=== PATIENT | male | born 1970 | race Hispanic/Latino ===

== ENCOUNTER 2017-12-05 20:08 | Emergency (ER) | payer BC ==
[2017-12-05] MEDS ORDERED: MOTRIN PO ONE (20:33)
[2017-12-05] MEDS ORDERED: DELTASONE PO ONE (20:33)
[2017-12-05] MEDS ORDERED: ZITHROMAX PO ONE (20:34)
--- NOTE | 2017-12-05 20:43 | Emergency Department Report ---
Upper Respiratory HPI - HPI Duration: 5 Days URI Symptoms: Sore Throat: Yes, Ear Pain: Yes, Cough: Yes, Shortness of Breath: No, Sick Contacts: No, Unable to Take Fluids: No, Urine Output Abnormal: No, Listless Behavior: No Other History: bronchitis <DRE YOU - Last Filed: 12/05/17 20:35> <ELAINE JON - Last Filed: 12/06/17 19:57> - HPI Chief Complaint: Upper Respiratory Infection Stated Complaint: SORETHROAT Time Seen by Provider: 12/05/17 20:28 - Home Meds and Allergies Home Medications: Previous Rx's Medication Instructions Recorded Last Taken Type ALBUTEROL Inhaler [ProAir HFA 2 puff IH QID PRN #1 inhalation 12/05/17 Unknown Rx Inhaler] Azithromycin [Zithromax TAB] 250 mg PO QDAY #4 tablet 12/05/17 Unknown Rx Codeine Phosphate/Guaifenesin 5 ml PO TID PRN #120 liquid 12/05/17 Unknown Rx [Guaifen-Codeine 100-10 mg/5 ml] Ibuprofen [Motrin 800 MG tab] 800 mg PO TID PRN #30 tablet 12/05/17 Unknown Rx predniSONE [Deltasone] 40 mg PO QDAY #10 tablet 12/05/17 Unknown Rx Allergies/Adverse Reactions: Allergies Allergy/AdvReac Type Severity Reaction Status Date / Time No Known Allergies Allergy Unverified 12/05/17 20:20 ED Review of Systems ROS: Stated complaint: SORETHROAT Other details as noted in HPI Constitutional: chills, malaise ENT: ear pain, throat pain, congestion Respiratory: cough, wheezing Cardiovascular: denies: chest pain, palpitations Endocrine: no symptoms reported Gastrointestinal: denies: abdominal pain, nausea, diarrhea Genitourinary: denies: urgency, dysuria Musculoskeletal: denies: back pain, joint swelling, arthralgia Skin: denies: rash, lesions Neurological: denies: headache, weakness, paresthesias Psychiatric: denies: anxiety, depression Hematological/Lymphatic: denies: easy bleeding, easy bruising <DRE YOU - Last Filed: 12/05/17 20:35> ROS: Stated complaint: SORETHROAT Other details as noted in HPI <ELAINE JON - Last Filed: 12/06/17 19:57> ED Past Medical Hx - Past Medical History Previous Medical History?: No - Surgical History Past Surgical History?: No - Social History Smoking Status: Former Smoker Substance Use Type: None <DRE YOU - Last Filed: 12/05/17 20:35> <ELAINE JON - Last Filed: 12/06/17 19:57> - Medications Home Medications: Home Medications Medication Instructions Recorded Confirmed Last Taken Type ALBUTEROL Inhaler [ProAir HFA 2 puff IH QID PRN #1 inhalation 12/05/17 Unknown Rx Inhaler] Azithromycin [Zithromax TAB] 250 mg PO QDAY #4 tablet 12/05/17 Unknown Rx Codeine Phosphate/Guaifenesin 5 ml PO TID PRN #120 liquid 12/05/17 Unknown Rx [Guaifen-Codeine 100-10 mg/5 ml] Ibuprofen [Motrin 800 MG tab] 800 mg PO TID PRN #30 tablet 12/05/17 Unknown Rx predniSONE [Deltasone] 40 mg PO QDAY #10 tablet 12/05/17 Unknown Rx ED Bronchiolitis Physical Exam - Exam General: Vital signs noted. No distress. Alert and acting appropriately. HEENT: Yes Pharyngeal Erythema, Yes Rhinorrhea, No Conjuctival Injection, No Dry Mucous Membranes Ear: Both TM Erythema, Neither EAC Discharge Neck: No Adenopathy, No Rigidity Lungs: Yes Clear Lung Sounds, Yes Good Air Exchange, Yes Cough, No Wheezes, No Stridor, No Nasal Flaring, No Retractions, No Use of Accessory Muscles Heart: Yes Regular, No Murmur Abdomen: Yes Normal Bowel Sounds, No Tenderness, No Peritoneal Signs Skin: No Rash, No Eczema Neurologic: Alert and oriented, no deficits. Musculoskeletal: Unremarkable. <DRE YOU - Last Filed: 12/05/17 20:35> - Exam General: Vital signs noted. No distress. Alert and acting appropriately. Neurologic: Alert and oriented, no deficits. Musculoskeletal: Unremarkable. <ELAINE JON - Last Filed: 12/06/17 19:57> ED Physical Exam - General Limitations: No Limitations General appearance: alert, in no apparent distress - Head Head exam: Present: atraumatic - Eye Eye exam: Present: normal appearance - ENT ENT exam: Present: mucous membranes moist - Expanded ENT Exam Expanded TM/Canal exam: Erythema: Right TM, Left TM, Canal Tenderness: Right TM, Left TM Throat exam: Positive: tonsillar erythema, tonsillomegaly. Negative: tonsillar exudate, R peritonsillar mass, L peritonsillar mass - Neck Neck exam: Present: normal inspection, full ROM. Absent: tenderness, lymphadenopathy, thyromegaly - Respiratory Respiratory exam: Present: normal lung sounds bilaterally. Absent: respiratory distress, wheezes, rhonchi, stridor, chest wall tenderness - Cardiovascular Cardiovascular Exam: Present: regular rate, normal rhythm, normal heart sounds. Absent: systolic murmur, diastolic murmur, rubs, gallop - GI/Abdominal GI/Abdominal exam: Present: soft, normal bowel sounds. Absent: distended, tenderness, guarding, rebound, rigid, organomegaly, mass, bruit, pulsatile mass , hernia - Rectal Rectal exam: Present: deferred - Extremities Exam Extremities exam: Present: normal inspection - Back Exam Back exam: Present: normal inspection, full ROM. Absent: tenderness, CVA tenderness (R), CVA tenderness (L), muscle spasm, paraspinal tenderness, vertebral tenderness - Neurological Exam Neurological exam: Present: alert, oriented X3, CN II-XII intact, normal gait, reflexes normal - Psychiatric Psychiatric exam: Present: normal affect, normal mood - Skin Skin exam: Present: warm, dry, intact, normal color. Absent: rash <DRE YOU - Last Filed: 12/05/17 20:35> ED Medical Decision Making - Medical Decision Making This is likely bronchitis , given history of bronchitis. no response to amoxicillin. however lungs clear at this time, bilat TM erythema, moderate pharynx erythema no swelling exudate uvula midline no stridor no whezzing, no fever, Plan: Z-Iban 5 day ,albuterol inhaler when necessary shortness of breath /wheezing /prednisone 40 mg by mouth 5 days/ ibuprofen when necessary pain fever 3 times a day/ cheratussin when necessary cough tid, follow PCP in 2-3 days return to ed if symptoms worsen, pt verbalized agreement and understanding with same will dc to home in stable condition at this time. pt is currently a/o x 3 ambulatory gait steady with nad at this time. <DRE YOU - Last Filed: 12/05/17 20:35> - Medical Decision Making I was available for consultations at all times during the patient stay. I did not personally see and was not involved in the care of the patient. <ELAINE JON - Last Filed: 12/06/17 19:57> Critical care attestation.: If time is entered above; I have spent that time in minutes in the direct care of this critically ill patient, excluding procedure time. <DRE YOU - Last Filed: 12/05/17 20:35> Critical care attestation.: If time is entered above; I have spent that time in minutes in the direct care of this critically ill patient, excluding procedure time. <ELAINE JON - Last Filed: 12/06/17 19:57> ED Disposition Is pt being admited?: No Does the pt Need Aspirin: No Time of Disposition: 20:47 <DRE YOU - Last Filed: 12/05/17 20:35> <ELAINE JON - Last Filed: 12/06/17 19:57> Disposition: DC-01 TO HOME OR SELFCARE Condition: Good Instructions: Upper Respiratory Infection (ED), Acute Bronchitis (ED) Prescriptions: ALBUTEROL Inhaler [ProAir HFA Inhaler] 2 puff IH QID PRN #1 inhalation PRN Reason: Shortness Of Breath Azithromycin [Zithromax TAB] 250 mg PO QDAY #4 tablet Codeine Phosphate/Guaifenesin [Guaifen-Codeine 100-10 mg/5 ml] 5 ml PO TID PRN # 120 liquid PRN Reason: Cough Ibuprofen [Motrin 800 MG tab] 800 mg PO TID PRN #30 tablet PRN Reason: pain/fever predniSONE [Deltasone] 40 mg PO QDAY #10 tablet Referrals: PRIMARY CARE,MD [Referring] - 3-5 Days Forms: Work/School Release Form(ED)
== END 2017-12-05 21:06 | disposition home or self-care (01) ==
LOC: ED 20:08
DX: J02.9 Acute pharyngitis, unspecified (principal); Z87.891 Personal history of nicotine dependence
CPT/HCPCS: 99282; J7512

== ENCOUNTER 2019-08-18 07:32 | Outpatient (CLI) | payer BC ==
--- NOTE | 2019-08-18 09:21 | Magnetic Resonance Report ---
MRI LUMBAR SPINE WITHOUT CONTRAST INDICATION / CLINICAL INFORMATION: Low back pain and right leg pain. TECHNIQUE: Multisequence, multiplanar images of the lumbar spine were obtained. COMPARISON: None available. FINDINGS: ALIGNMENT: Normal lumbar lordosis without significant scoliosis. VERTEBRAE:There is a background of developmental short pedicles contributing to multilevel canal sten osis. VISUALIZED SPINAL CORD: No significant abnormality. [id number] ANALYSIS: L1-2: There is mild bilateral facet DJD without significant canal or foraminal narrowing. L2-3: There is mild bilateral facet DJD without significant canal or foraminal narrowing. L3-4: There is moderate bilateral facet DJD and symmetric bulging of the discs. The ligamentum flavum thickening and disc bulge result in moderate canal stenosis. There is no significant neural foramina l stenosis. L4-5: There is moderate bilateral facet DJD with ligamentum flavum thickening and moderate symmetric bulging of the disc that result in moderate central canal stenosis. There is also mild bilateral neur al foraminal narrowing secondary to the facet hypertrophy. L5-S1: There is moderate bilateral facet DJD and rightward asymmetric bulging of the disc resulting i n mild central canal stenosis and mild bilateral neural foraminal stenosis. PARASPINAL SOFT TISSUES: No significant abnormality. ADDITIONAL FINDINGS: None. IMPRESSION: 1. Multilevel degenerative changes superimposed upon developmental short pedicles with mild to modera te central canal stenosis from L3 through S1, greatest at L3-4 and L4-5. Signer Name: Raphael Nixon MD Signed: 08/18/2019 9:17 AM Workstation Name: [email or web address]
== END 2019-08-18 07:33 | disposition home or self-care (01) ==
LOC: MRI 07:32
DX: M47.817 Spondylosis without myelopathy or radiculopathy, lumbosacral region (principal); M48.07 Spinal stenosis, lumbosacral region
CPT/HCPCS: 72148

== ENCOUNTER 2020-06-11 01:23 | Emergency (ER) | payer BC ==
[2020-06-11 01:30] VITALS: BP 141/95
--- NOTE | 2020-06-11 01:31 | Event Note ---
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 Does report Covid positive coworkers. Has not been tested or vaccinated. This initial assessment/diagnostic orders/clinical plan/treatment(s) is/are subject to change based on patients health status, clinical progression and re- assessment by fellow clinical providers in the ED. Further treatment and workup at subsequent clinical providers discretion. Patient/guardian urged not to elope from the ED as their condition may be serious if not clinically assessed and managed. Initial orders include:
[2020-06-11 02:19] LABS: Basophils # (Auto) 0.1 K/mm3 (0.0-0.1); Basophils % (Auto) 0.9 % (0.0-1.8); Eosinophils # (Auto) 0.1 K/mm3 (0.0-0.4); Hematocrit 42.3 % (35.5-45.6); Hemoglobin 14.6 gm/dl (11.8-15.2); Lymphocytes # (Auto) 1.1 K/mm3 (1.2-5.4); Lymphocytes % (Auto) 19.5 % (13.4-35.0); Mean Corpuscular HGB Conc 35 % (32-34); Mean Corpuscular Volume 82 fl (84-94); Monocytes # (Auto) 0.7 K/mm3 (0.0-0.8); Monocytes % (Auto) 13.3 % (0.0-7.3); Platelet Count 246 K/mm3 (140-440); Red Blood Count 5.15 M/mm3 (3.65-5.03); Red Cell Distribution Width 14.5 % (13.2-15.2)
--- NOTE | 2020-06-11 02:23 | XRay Report ---
XR chest routine 2V INDICATION / CLINICAL INFORMATION: dry cough COMPARISON: None available. FINDINGS: SUPPORT DEVICES: None. HEART / MEDIASTINUM: No significant abnormality. LUNGS / PLEURA: Lungs are clear. Costophrenic sulci are sharp. No pneumothorax. ADDITIONAL FINDINGS: No significant additional findings. IMPRESSION: 1. No acute findings. Signer Name: Eugenio Guerra MD Signed: 06/11/2020 2:18 AM Workstation Name: [id number]
[2020-06-11 02:47] LABS: Alanine Aminotransferase 55 units/L (7-56); Albumin 4.4 g/dL (3.9-5); BUN/Creatinine Ratio 17; Blood Urea Nitrogen 15 mg/dL (9-20); Calcium 9.6 mg/dL (8.4-10.2); Hemolysis Index 24
--- NOTE | 2020-06-11 03:01 | Emergency Department Report ---
HPI - General Chief Complaint: Upper Respiratory Infection Time Seen by Provider: 06/11/20 02:35 - HPI HPI: Room 34 The patient is a 50-year-old male present with a chief complaint of headache dizziness myalgias and cough. The patient states yesterday he was in his usual state of health. The patient states today he laid down for nap and when he awak ened he felt like he been "hit by a truck." Patient admits to myalgias feeling tired with intermittent dizziness and headache. Patient states he has developed a dry cough and subjective fever. Patient denies rhinorrhea nausea or vomiting. Patient denies any preceding trauma. Patient gives his pain a score of 3/10 ED Past Medical Hx - Past Medical History Previous Medical History?: No - Surgical History Past Surgical History?: Yes Additional Surgical History: neck - Family History Family history: no significant - Social History Smoking Status: Never Smoker Substance Use Type: None - Medications Home Medications: Home Medications Medication Instructions Recorded Confirmed Last Taken Type Albuterol Mdi (or & Nicu Only) 2 puff IH QID PRN #1 inhalation 12/05/17 Unknown Rx [ProAir HFA Inhaler] Azithromycin [Zithromax TAB] 250 mg PO QDAY #4 tablet 12/05/17 Unknown Rx Codeine Phosphate/Guaifenesin 5 ml PO TID PRN #120 liquid 12/05/17 Unknown Rx [Guaifen-Codeine 100-10 mg/5 ml] Ibuprofen [Motrin 800 MG tab] 800 mg PO TID PRN #30 tablet 12/05/17 Unknown Rx predniSONE [Deltasone] 40 mg PO QDAY #10 tablet 12/05/17 Unknown Rx Azithromycin [Zithromax Z-FRANKLIN] 0 mg PO DAILY #6 tab 06/11/20 Unknown Rx Butalb/Acetamin/Caff 50-325-40 2 tab PO Q8HR PRN #20 tablet 06/11/20 Unknown Rx [Fioricet 50-325-40] ED Review of Systems ROS: Stated complaint: GENERAL ILLNESS Other details as noted in HPI Constitutional: chills, fever (Subjective) Eyes: denies: eye pain ENT: congestion (Frontal sinus) Respiratory: cough Cardiovascular: denies: chest pain Endocrine: no symptoms reported Gastrointestinal: denies: nausea, vomiting Genitourinary: denies: dysuria Musculoskeletal: myalgia Neurological: headache Physical Exam - Physical Exam Vital Signs: Vital Signs 06/11/20 01:27 Temperature 99.9 F H Pulse Rate 109 H Respiratory 22 Rate Blood Pressure 141/95 [Right] O2 Sat by Pulse 97 Oximetry Physical Exam: GENERAL: The patient is well-developed well-nourished male lying on stretcher not appearing to be in acute. [] HEENT: Normocephalic. Atraumatic. Extraocular motions are intact. Patient has moist mucous membranes. NECK: Supple. No meningitic signs are noted. There is no adenopathy noted. CHEST/LUNGS: Clear to auscultation. There is no respiratory distress noted. HEART/CARDIOVASCULAR: Regular. There is no tachycardia. There is no gallop rub or murmur. ABDOMEN: Abdomen is soft, nontender. Patient has normal bowel sounds. There is no abdominal distention. SKIN: There is no rash. There is no edema. There is no diaphoresis. NEURO: The patient is awake, alert, and oriented. The patient is cooperative. The patient has no focal neurologic deficits. The patient has normal speech. Cranial nerves II through XII grossly intact MUSCULOSKELETAL: There is no evidence of acute injury. ED Course Vital Signs 06/11/20 01:27 Temperature 99.9 F H Pulse Rate 109 H Respiratory 22 Rate Blood Pressure 141/95 [Right] O2 Sat by Pulse 97 Oximetry - Reevaluation(s) Reevaluation #1: 06/11/20 04:44 Patient SPO2 95% on room air after ambulating 2 minutes ED Medical Decision Making - Lab Data Result diagrams: 06/11/20 01:50 06/11/20 01:50 Laboratory Tests 06/11/20 06/11/20 01:50 01:50 WBC 5.6 RBC 5.15 H Hgb 14.6 Hct 42.3 MCV 82 L MCH 28 MCHC 35 H RDW 14.5 Plt Count 246 Lymph % (Auto) 19.5 [place] % (Auto) 13.3 H Eos % (Auto) 1.0 Baso % (Auto) 0.9 Lymph # (Auto) 1.1 L [place] # (Auto) 0.7 Eos # (Auto) 0.1 Baso # (Auto) 0.1 Seg Neutrophils % 65.3 Seg Neutrophils # 3.6 Sodium 139 Potassium 4.6 Chloride 102.4 Carbon Dioxide 24 Anion Gap 17 BUN 15 Creatinine 0.9 Estimated GFR > 60 BUN/Creatinine Ratio 17 Glucose 105 H Calcium 9.6 Total Bilirubin 0.40 AST 47 H ALT 55 Alkaline Phosphatase 131 H Total Protein 7.0 Albumin 4.4 Albumin/Globulin Ratio 1.7 - Radiology Data Radiology results: report reviewed (Chest x-ray, CT head), image reviewed (Chest x-ray, CT head) interpreted by me: Chest x-ray-no focal infiltrates, no pneumothorax. No foreign body seen Chest x-ray (read by radiologist)-no acute findings [facility] [address] [place] [address] Cat Scan Report Signed Patient: PRITI WAGGONER R#: [id number] : 1970 Acct:[id number] Age/Sex: 50 / M ADM Date: 06/11/20 Loc: ED Attending Dr: Ordering Physician: CONNOR DENIS MD Date of Service: 06/11/20 Procedure(s): CT head/brain wo con Accession Number(s): [id number] cc: CONNOR DENIS MD CT head/brain wo con INDICATION: Patient complains of a headache and dizziness x 1 day.. TECHNIQUE: Routine CT head. All CT scans at this location are performed using CT dose reduction for ALARA by means of automated exposure control. COMPARISON: None. FINDINGS: Intracranial: Murry-white matter differen tiation is maintained. No intracranial hemorrhage. No extra axial collection. No hydrocephalus. No herniation. Sinuses: Paranasal sinuses and mastoid air cells are essentially clear. Orbits: Globes are intact. Calvarium: No acute fracture. IMPRESSION: 1. No acute intracranial abnormality. Signer Name: Eugenio Guerra MD Signed: 06/11/2020 3:42 AM Workstation Name: [id number] Transcribed By: CS Dictated By: Eugenio Guerra MD Electronically Authenticated By: Eugenio Guerra MD Signed Date/Time: 06/11/20341 DD/ 9 TD/TT: - Differential Diagnosis Viral prodrome, COVID-19, pneumonia, bronchitis, intracranial hemorrhage Critical care attestation.: If time is entered above; I have spent that time in minutes in the direct care of this critically ill patient, excluding procedure time. ED Disposition Clinical Impression: Cough, Headache Disposition: DC-01 TO HOME OR SELFCARE Is pt being admited?: No Does the pt Need Aspirin: No Condition: Stable Instructions: COVID-19 Frequently Asked Questions, Prevent the Spread of COVID- 19 if You Are Sick - [facility] Additional Instructions: Return to the emergency department should you develop worsening symptoms, inability to tolerate food or liquids, high fever or any other concerns Prescriptions: Butalb/Acetamin/Caff 50-325-40 [Fioricet 50-325-40] 2 tab PO Q8HR PRN #20 tablet PRN Reason: Headache Azithromycin [Zithromax Z-FRANKLIN] 0 mg PO DAILY #6 tab Referrals: OSMIN LOPEZ MD [Primary Care Provider] - 3-5 Days Time of Disposition: 04:44
--- NOTE | 2020-06-11 03:47 | Cat Scan Report ---
CT head/brain wo con INDICATION: Patient complains of a headache and dizziness x 1 day.. TECHNIQUE: Routine CT head. All CT scans at this location are performed using CT dose reduction for A BEAR by means of automated exposure control. COMPARISON: None. FINDINGS: Intracranial: Murry-white matter differentiation is maintained. No intracranial hemorrhage. No extra a xial collection. No hydrocephalus. No herniation. Sinuses: Paranasal sinuses and mastoid air cells are essentially clear. Orbits: Globes are intact. Calvarium: No acute fracture. IMPRESSION: 1. No acute intracranial abnormality. Signer Name: Eugenio Guerra MD Signed: 06/11/2020 3:42 AM Workstation Name: [id number]
== END 2020-06-11 04:50 | disposition home or self-care (01) ==
LOC: ED 01:23
DX: R05 Cough (principal); R51.9 Headache, unspecified; Z79.899 Other long term (current) drug therapy; Z98.890 Other specified postprocedural states
CPT/HCPCS: 36415; 70450; 71046; 80053; 85025

== ENCOUNTER 2020-12-06 07:28 | Outpatient (CLI) | payer BC ==
--- NOTE | 2020-12-06 09:41 | Magnetic Resonance Report ---
MRI RIGHT KNEE WITHOUT CONTRAST INDICATION / CLINICAL INFORMATION: POST. RIGHT KNEE PAIN. TECHNIQUE: Multiplanar, multisequence MR images were obtained. No contrast used. COMPARISON: None available. FINDINGS: ACL: No significant abnormality. PCL: No significant abnormality. DISTAL QUADRICEPS TENDON: No significant abnormality. PATELLAR TENDON: No significant abnormality. MEDIAL MENISCUS: Complex tear in the posterior horn and body of the medial meniscus. LATERAL MENISCUS: No significant abnormality. POSTEROLATERAL CORNER: No significant abnormality. MCL: No significant abnormality. LCL: No significant abnormality. DISTAL IT BAND: No significant abnormality. PATELLOFEMORAL ALIGNMENT: No significant abnormality. ARTICULAR CARTILAGE: Moderate chondrosis in the medial femorotibial compartment and patellofemoral co mpartment with secondary marginal osteophyte formation. JOINT SPACE: No significant joint effusion or synovitis. No significant popliteal cyst. No intra-abimbola cular bodies. BONES: No significant bone marrow edema. No fracture. No osseous lesion. SOFT TISSUES: No significant abnormality. ADDITIONAL FINDINGS: None. IMPRESSION: 1. Complex tear in the posterior horn and body of the medial meniscus. 2. 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 Signer Name: Raphael Nixon MD Signed: 12/06/2020 9:37 AM Workstation Name: [id number]
== END 2020-12-06 07:29 | disposition home or self-care (01) ==
LOC: MRI 07:28
PROVIDERS: ATTEND Orthopaedic Surgery Sports Medicine
DX: S83.231A Complex tear of medial meniscus, current injury, right knee, initial encounter (principal); M17.11 Unilateral primary osteoarthritis, right knee; X58.XXXA Exposure to other specified factors, initial encounter
CPT/HCPCS: 73721

== ENCOUNTER 2021-09-02 00:20 | Emergency (ER) | payer BC ==
[2021-09-02 00:51] VITALS: BP 140/92
[2021-09-02 01:29] LABS: Basophils # (Auto) 0.1 K/mm3 (0.0-0.1); Basophils % (Auto) 0.6 % (0.0-1.8); Eosinophils # (Auto) 0.3 K/mm3 (0.0-0.4); Eosinophils % (Auto) 3.1 % (0.0-4.3); Hematocrit 43.6 % (35.5-45.6); Hemoglobin 14.4 gm/dl (11.8-15.2); Lymphocytes # (Auto) 1.8 K/mm3 (1.2-5.4); Lymphocytes % (Auto) 18.3 % (13.4-35.0); Mean Corpuscular HGB Conc 33 % (32-34); Mean Corpuscular Volume 80 fl (84-94); Monocytes # (Auto) 0.6 K/mm3 (0.0-0.8); Monocytes % (Auto) 5.9 % (0.0-7.3); Platelet Count 293 K/mm3 (140-440); Red Blood Count 5.42 M/mm3 (3.65-5.03); Red Cell Distribution Width 14.1 % (13.2-15.2)
--- NOTE | 2021-09-02 01:30 | XRay Report ---
CHEST 1 VIEW INDICATION / CLINICAL INFORMATION: dizziness. COMPARISON: Chest x-ray 06/11/2020 FINDINGS: SUPPORT DEVICES: None. HEART / MEDIASTINUM: No significant abnormality. LUNGS / PLEURA: The lungs are clear. No pneumothorax. ADDITIONAL FINDINGS: No significant additional findings. IMPRESSION: 1. No active cardiopulmonary disease. Signer Name: Hussein White II, MD Signed: 09/02/2021 1:26 AM Workstation Name: [id number]
[2021-09-02 01:41] LABS: Alanine Aminotransferase 26 units/L (7-56); Albumin 4.2 g/dL (3.9-5); BUN/Creatinine Ratio 19; Blood Urea Nitrogen 15 mg/dL (9-20); Calcium 9.1 mg/dL (8.4-10.2); Hemolysis Index 13
[2021-09-02] MEDS ORDERED: MECLIZINE 25 MG TAB PO ONE (02:29)
--- NOTE | 2021-09-02 02:31 | Emergency Department Report ---
ED Dizziness HPI - General Chief Complaint: Dizziness Stated Complaint: DIZZINESS Time Seen by Provider: 09/02/21 02:10 Source: patient Mode of arrival: Ambulatory Limitations: No Limitations - History of Present Illness Initial Comments: This patient states that he was watching TV and suddenly began experiencing symptoms in which he felt MD Complaint: dizziness -: Sudden Timing: sudden onset Description: off-balance, nausea History of Same: Yes History of Trauma: No Severity: moderate Associated Symptoms: denies: chest pain, confusion, diaphoresis, fever/chills, loss of appetite, malaise, seizure, shortness of breath, syncope, weakness - Related Data Previous Rx's Medication Instructions Recorded Last Taken Type Albuterol Mdi (or & Nicu Only) 2 puff IH QID PRN #1 inhalation 12/05/17 Unknown Rx [ProAir HFA Inhaler] Azithromycin [Zithromax TAB] 250 mg PO QDAY #4 tablet 12/05/17 Unknown Rx Codeine Phosphate/Guaifenesin 5 ml PO TID PRN #120 liquid 12/05/17 Unknown Rx [Guaifen-Codeine 100-10 mg/5 ml] Ibuprofen [Motrin 800 MG tab] 800 mg PO TID PRN #30 tablet 12/05/17 Unknown Rx predniSONE [Deltasone] 40 mg PO QDAY #10 tablet 12/05/17 Unknown Rx Azithromycin [Zithromax Z-FRANKLIN] 0 mg PO DAILY #6 tab 06/11/20 Unknown Rx Butalb/Acetamin/Caff 50-325-40 2 tab PO Q8HR PRN #20 tablet 06/11/20 Unknown Rx [Fioricet 50-325-40] Meclizine [Antivert] 25 mg PO TID PRN #20 tab 09/02/21 Unknown Rx Allergies Allergy/AdvReac Type Severity Reaction Status Date / Time No Known Allergies Allergy Unverified 12/05/17 20:20 ED Review of Systems ROS: Stated complaint: DIZZINESS Other details as noted in HPI ED Past Medical Hx - Surgical History Additional Surgical History: neck - Social History Smoking Status: Never Smoker Substance Use Type: None - Medications Home Medications: Home Medications Medication Instructions Recorded Confirmed Last Taken Type Albuterol Mdi (or & Nicu Only) 2 puff IH QID PRN #1 inhalation 12/05/17 Unknown Rx [ProAir HFA Inhaler] Azithromycin [Zithromax TAB] 250 mg PO QDAY #4 tablet 12/05/17 Unknown Rx Codeine Phosphate/Guaifenesin 5 ml PO TID PRN #120 liquid 12/05/17 Unknown Rx [Guaifen-Codeine 100-10 mg/5 ml] Ibuprofen [Motrin 800 MG tab] 800 mg PO TID PRN #30 tablet 12/05/17 Unknown Rx predniSONE [Deltasone] 40 mg PO QDAY #10 tablet 12/05/17 Unknown Rx Azithromycin [Zithromax Z-FRANKLIN] 0 mg PO DAILY #6 tab 06/11/20 Unknown Rx Butalb/Acetamin/Caff 50-325-40 2 tab PO Q8HR PRN #20 tablet 06/11/20 Unknown Rx [Fioricet 50-325-40] Meclizine [Antivert] 25 mg PO TID PRN #20 tab 09/02/21 Unknown Rx ED Physical Exam - General Limitations: No Limitations ED Course Vital Signs 09/02/21 00:34 Temperature 98.3 F Pulse Rate 94 H Respiratory 18 Rate Blood Pressure 140/92 [Right] O2 Sat by Pulse 96 Oximetry ED Medical Decision Making - Lab Data Result diagrams: 09/02/21 01:04 09/02/21 01:04 Critical care attestation.: If time is entered above; I have spent that time in minutes in the direct care of this critically ill patient, excluding procedure time. ED Disposition Clinical Impression: Vertigo Disposition: 01 HOME / SELF CARE / HOMELESS Is pt being admited?: No Condition: Stable Instructions: How to Perform the Keely Maneuver, Dizziness, Bizc-mg-Hvpk Prescriptions: Meclizine [Antivert] 25 mg PO TID PRN #20 tab PRN Reason: Vertigo Referrals: RAMONA QUINN DO [Primary Care Provider] - 3-5 Days
--- NOTE | 2021-09-02 02:58 | Cat Scan Report ---
CT HEAD WITHOUT CONTRAST INDICATION / CLINICAL INFORMATION: Dizziness x 3 hours. TECHNIQUE: CT head was performed without administration of intravenous contrast. All CT scans at this location are performed using CT dose reduction for ALARA by means of automated exposure control. COMPARISON: CT brain 06/11/2020 FINDINGS: CEREBRAL PARENCHYMA: Generalized cortical and central atrophy. Periventricular regions of white matte r hypoattenuation compatible with microvascular ischemia. HEMORRHAGE: None. EXTRA-AXIAL SPACES: Normal in size and morphology for the patient's age. VENTRICULAR SYSTEM: Normal in size and morphology for the patient's age. MIDLINE SHIFT / HERNIATION: None. CEREBELLUM / BRAINSTEM: No significant abnormality. ORBITS: Normal as visualized. SOFT TISSUES: No significant abnormality. SKULL: No significant abnormality. PARANASAL SINUSES / MASTOID AIR CELLS: Normal as visualized. ADDITIONAL FINDINGS: None. IMPRESSION: 1. No acute intracranial abnormality. Signer Name: Hussein White II, MD Signed: 09/02/2021 2:54 AM Workstation Name: [id number]
--- NOTE | 2021-09-03 14:20 | Electrocardiograph Report ---
[facility] Test Date: 2021-09-02 Test Time: 01:01:26 Pat Name: PRITI WAGGONER Department: Room: Gender: M [employer]: MINE : 1970 Requested By: JOSE PIZARRO Order Number: [id number] Reading MD: Kriss Foy Measurements Intervals [place] Rate: 83 P: 27 [place]: 154 QRS: 126 QRSD: 92 T: 6 QT: 361 QTc: 425 Interpretive Statements Sinus rhythm Rightward axis deviation Possible inferior infarct, old No previous ECG available for comparison Electronically Signed On 09-03-2021 14:20:16 EDT by Kriss Foy
== END 2021-09-02 04:32 | disposition home or self-care (01) ==
LOC: ED 00:20
DX: R42 Dizziness and giddiness (principal)
CPT/HCPCS: 36415; 70450; 71045; 80053; 84484; 85025; 93005; 99284